=== PATIENT | male | born 1930 | race Caucasian/White ===

== ENCOUNTER 2016-12-01 21:07 | Inpatient (IN) | payer MEDICARE, BC ==
[~2016-12-01] VITALS: Ht 177.8 cm; Wt 61.7 kg
--- NOTE | ~2016-12-01 | ECH ---
Transthoracic Echocardiography Report (TTE) Demographics Patient Name CARIN MARX Date of Study 12/02/2016 Patient Number [id number] Visit Number [id number] Date of 1930 Room Number 522 Accession Number [id number] Gender Male Age 86 year(s) Referring Arvind Wu Coder Elvia Benson [facility] Physician Physician Interpreting Peyton Curry Payroll Tax Specialist Physician Supervising Ordering Physician Arvind Wu MD, MD/P Nurse Stress Meat Curer Conclusions Summary Technically fair exam. The estimated left ventricular ejection fraction is 50-55%. Mild left ventricular hypertrophy. The left atrium is mildly dilated by LA volume index measurement. Mild mitral regurgitation by color Doppler. Procedure Type of Study TTE procedure:Echo Complete SF. Procedure Date Date: 12/02/2016 Start: 08:01 AM Technical Quality: Fair due to patient immobility. Indications:Atrial fibrillation, Abnormal troponin, Coronary artery disease and pre surgical clearance. Additional Indications:pacemaker Appropriate Use Criteria: 9 Height: 70 inches Weight: 136.69 pounds BSA: 1.78 m Rhythm: Paced HR: 71 bpm BP: 141/89 mmHg Allergies - Other:(PCN, Procain). M-Mode/2D Measurements LV Diastolic Dimension: 4.36 cm LV Systolic Dimension: 3.15 cm LV Septum Diastolic: 1.1 cm LV PW Diastolic: 1.26 cm AO Root Dimension: 2.28 cm Cardiac Output: 3.05 l/min LA Dimension: 4.29 cm Cardiac Index: 1.71 l/min*m LA volume index: 38 ml/m LVOT: 2.34 cm RV Base: 3.3 cm LVOT VTI: 9.99 cm RV Mid: 2.9 cm LV Stroke volume: 42.94 ml RV Length: 5.8 cm LV Stroke volume index: 24.12 ml/m TAPSE: 1.3 cm TDI-S': 11 cm/s Doppler Measurements AV Peak Velocity: 1.8 m/s MV Peak E-Wave: 0.75 m/s AV Peak Gradient: 12.96 mmHg AV Mean Gradient: 8.18 mmHg LVOT Peak Velocity: 0.55 m/s AV Area (Continuity):1.33 cm TR Velocity:1.37 m/s Estimated PASP: 12.5 mmHg TR Gradient:7.5 mmHg Estimated RAP:5 mmHg Estimated RVSP: 13 mmHg RA Area: 12.79 cm Findings Left Ventricle The left ventricle is normal in size . Mild left ventricular hypertrophy. Diastolic function indeterminate due to patient's arrhythmia. Right Ventricle Normal right ventricle structure and function. Left Atrium The left atrium is mildly dilated by LA volume index measurement. Right Atrium Normal right atrial size. Mitral Valve Mild thickening of the mitral valve leaflets. Mild mitral regurgitation by color Doppler. Aortic Valve The aortic valve is moderately sclerotic with a mean gradient of 8mmHg. Tricuspid Valve Normal tricuspid valve structure and function. Estimated pulmonary pressures within normal range. Pulmonic Valve The pulmonic valve is not well visualized. Pericardial Effusion No evidence of pericardial effusion. Miscellaneous Visualized portions of the aortic root and ascending aorta appear normal in size. Pleural Effusion No evidence of pleural effusion. Contractility Score LV regional wall motion:(0-Non visualized 1-Normal 2-Hypokinesis 3-Akinesis 4-Dyskinesis 5-Aneurysm) Signature
[~2016-12-01 21:07] MED LIST: ARICEPT DPS5 MG PO; ASA CHILDREN'S81 MG PO; COUMADIN5 MG PO; HYDROCODONE 5MG/5 MG PO; IMDUR DPS30 MG PO; KENALOG OINT. 015 GM TP; LASIX DPS20 MG PO; MIRALAX PACKET17 GM PO; MULTIPLE VITAMIN PO; MYCOSTATIN PWD15 GM TP; TENORMIN DPS50 MG PO; TYLENOL DPS325 MG PO; ZYLOPRIM-DPS300 MG PO; [UNRECOGNIZED DRUG - OTHER] PO
--- NOTE | 2016-12-02 19:07 | ER ---
ADMIT: 12/01/2016 RM/LOC: 522 [facility] MR#: [id number] [address] [facility] [address] [place], [place] [address] [place] [address] Emergency Room Report SEX: M AGE: 86 : 1930 DATE: 12/01/2016 HISTORY OF PRESENT ILLNESS: The patient is an 86-year-old male with past medical history of AFib, CABG, coronary artery disease, CABG five vessels, peripheral vascular disease, dementia, pacemaker placement, right hip fracture status post fixation, was brought to the ER with chief complaint of left hip pain after falling. Per EMS and per nursing care facility, the patient is moving around the wheelchair and is on Coumadin, and while transferring, he fell from the wheelchair down on the left side. The EMS states that he strictly denied any head trauma and they just said the patient fell on the left hip. The patient did not lose consciousness and did not complain of any chest pain or shortness of breath over there and the ER. The patient was put on gurney and was brought to the hospital for further followups. PHYSICAL EXAMINATION: GENERAL: Family is also at bedside. The patient is awake and is not oriented to place, person, and time. Family at bedside said it is his baseline mental status, knowing he has severe dementia. The patient complains of left hip pain during movement actively and passively. VITAL SIGNS: The patient had blood pressure of 155/76, with heart rate of 89, was afebrile in the ER, lying flat on the bed, in no obvious distress. HEAD AND NECK: Pupils are 3 mm, reactive to light bilaterally. There is no obvious spinal midline tenderness or step-offs. Trachea is midline. There is no bruit on the neck. LUNGS: On the chest, there is obvious pacemaker placed on the left side, clear bilateral equal breath sounds. ABDOMEN: Soft. PELVIS: Stable. EXTREMITIES: In the lower extremities, there is no obvious swelling or deformity. The patient had moderate pain in the range of motion of the left hip at the place of left hip and left femur. ADMIT: 12/01/2016 RM/LOC: 522 [facility] MR#: [id number] [address] [address] [place] [address] Emergency Room Report SEX: M AGE: 86 : 1930 LABORATORY AND X-RAY DATA: Followup EKG showed ventricular paced rhythm as before. Cardiac enzymes were elevated to 0.081 troponin I. Sodium was 141 with potassium of 3.8, glucose of 148, hemoglobin is 13 with hematocrit of 39 and WBC of 6.1, and platelets of 183,000. UA had 12 wbc's and 18 rbc's. Chest x-ray did not show any acute changes. Left femur x-ray was not obvious for any obvious fracture. CT of the pelvis was suggestive of left impacted fracture and mildly displaced of the subcapital area of the left femur. The patient also had recent sacral fractures. DISPOSITION: Internal Medicine and Orthopedic Surgery were consulted. The patient was admitted to Internal Medicine for further followups and treatments. Orthopedic Surgery is already on board. Que Mendes MD/ trinh JOB #: [id number] CC: Luis Fernando De Guzman MD, Attending Physician Luis Fernando De Guzman MD, Family Physician
--- NOTE | 2016-12-06 07:48 | CO ---
ADMIT: 12/01/2016 RM/LOC: 522 [facility] MR#: [id number] [id number] [place], [place] [address] [place] [address] Consultation SEX: M AGE: 86 : 1930 DATE OF CONSULTATION: 12/02/2016 ATTENDING PHYSICIAN: Luis Fernando De Guzman CONSULTING PHYSICIAN: Sixto Irvin MD CHIEF COMPLAINT: Left hip pain. HISTORY: An 86-year-old male with dementia and heart disease, had a right IT fracture, fixed with a TFN in August. He fell last night it was mechanical fall, so has some pain in his left hip, was brought to the ER, and was found to have a left femoral neck fracture. He was admitted and we were consulted for definitive care. REVIEW OF SYMPTOMS: Otherwise negative. He is demented. PAST MEDICAL HISTORY: Significant for dementia, CABG, he is on blood thinners. Otherwise, noncontributory. OBJECTIVE: GENERAL: He is awake, alert, oriented, in no acute distress. VITAL SIGNS: Afebrile. Vital signs are stable. EXTREMITIES: The left lower extremity is little shortened and externally rotated. EHL, FHL. Sensation intact to light touch. Brisk capillary refill. He is pleasant in no significant distress or pain at this point. Does have pain with log roll of the left hip IMAGING DATA: x-ray and CT scan shows subcapital femoral neck fracture with posterior displacement and impaction. ASSESSMENT: An 86-year-old male with left femoral neck fracture. PLAN: Plan for him to go the OR as soon as cleared today possible with Dr. Pope or myself. Sixto Irvin MD/ trinh JOB #: [id number] CC: Luis Fernando De Guzman, Attending Physician Luis Fernando De Guzman, Family Physician
--- NOTE | 2016-12-06 08:58 | OR ---
ADMIT: 12/01/2016 RM/LOC: 522 [facility] MR#: [id number] [address] [address] [place] [address] Operative/Delivery Room Report SEX: M AGE: 86 : 1930 SURGERY DATE: 12/03/2016 SURGEON: Sixto Pope MD PREOPERATIVE DIAGNOSIS: Left femoral neck fracture. POSTOPERATIVE DIAGNOSIS: Left femoral neck fracture. PROCEDURE: Left hip bipolar. HOUSEHOLD MANAGER: MARIO Miller. ANESTHESIA: General. ESTIMATED BLOOD LOSS: 250 mL. COMPLICATIONS: None. CONDITION: Fair to recovery room. INDICATIONS: The patient is an 86-year-old male, who fell on Friday, just out of a wheelchair, injuring his left hip. He just previously a couple of months ago, had a right hip fracture, which was repaired using a TFN. The patient did come in. He was on Coumadin. INR was elevated, so we waited till his INR was normalized and the plan is take him for right hip bipolar. After discussing procedures as well as risks and benefits with the patient and family and normalization of his INR, the procedure as well as risks and benefits were discussed with the patient and family at length and questions were answered. They agreed to proceed at this point. DESCRIPTION OF PROCEDURE: After informed consent was obtained, the patient was taken to the operating room, placed on the operative table in supine position. General anesthetic was administered. After adequate general anesthesia, the patient was placed in a right lateral decubitus position with the left hip up. Left hip was then prepped and draped in the usual sterile fashion. Once this was completed, we made an incision over the proximal femur laterally through the skin and subcutaneous tissues. Hemostasis maintained using Bovie electrocautery. We then split the IT band and tensor fascia longitudinally and placed a Charnley retractor. The anterior third of the abductors were then dissected off the proximal femur, extending proximally into the gluteus medius for about 2-3 cm and into the vastus lateralis about 2- 3 cm. We dissected this one third sleeve off the proximal femur. Once we identified the fractured leg, it was brought into flexion and external rotation. The fracture was brought into the wound. We then placed the conical reamer into the piriformis fossa, reamed followed by the canal finer followed by the lateralizing reamer. We then reamed distally to about a size 8. Once this was completed, we placed the femoral neck cutting guide, made a lourdes, and made our initial femoral neck cut. We then broached to a size 8 with a good press fit with this. We then used a calcar reamer for our final ADMIT: 12/01/2016 RM/LOC: 522 [facility] MR#: [id number] [address] [address] [place] [address] Operative/Delivery Room Report SEX: M AGE: 86 : 1930 femoral neck cut. The leg was brought back up on the table. Corkscrew was then used to remove the femoral head. We measured this and measured about 50 mm. We then placed a 50 mm trial shell and this appeared to be a good fit in the acetabulum. We then cleaned everything out of the acetabulum at this point. Once this was completed, leg was brought back into flexion and external rotation. The size 8 broach was then placed impacted into position. We then trialed this with +1.5 neck length 28 mm femoral head, 50 mm outer diameter bipolar shell and reduced the hip. Took it through range of motion. Good range of motion. Good mosque of leg length. Good stability. Once this was completed, the hip was then re-dislocated. The trial components were then removed. The acetabulum and proximal femur was copiously irrigated with pulse lavage and the components were then opened on the back table to include a size 8 femoral press-fit stem. A 28 mm femoral head with +1.5 neck length and 50 mm outer diameter bipolar shell. We then once again irrigated out the femoral canal and acetabulum. We placed the permanent DePuy Lehr basic fracture stem, size 8 press-fit into the proximal femur, impacted this into position. We then placed a +1.5 neck length 28 mm femoral head with 50 mm outer diameter bipolar shell onto the component and impacted this into position. We reduced the hip. Once again, good mosque of leg length, good stability, and good range of motion. Once this was completed, the wounds were copiously irrigated. We placed a couple of number #5 Ethibond figure-of- eight sutures in the anterior capsule. We then reattached the abductors onto the proximal femur using #5 Ethibond through bony tunnels and modified Kory- Jesus stitch in the tendon edge. We then reapproximated the split in the vastus lateralis distally using #1 Vicryl in a running fashion and split in the gluteus proximally using #1 Vicryl in a running fashion. The wounds were once again copiously irrigated. IT band was reapproximated using #1 Vicryl in a ngqeby-td-offiw fashion. We irrigated the wound one final time. The subcutaneous tissue was then closed using 2-0 Vicryl in a simple interrupted fashion. The skin was closed using skin paramjit. A sterile compressive dressing was applied consisting of Xeroform, plain gauze, ABDs, Medipore tape. The patient then returned supine and transferred to recovery room in fair condition. Sixto Pope MD/ trinh JOB #: [id number] CC: Luis Fernando De Guzman, Attending Physician Luis Fernando De Guzman, Family Physician
--- NOTE | 2016-12-06 08:58 | HP ---
ADMIT: 12/01/2016 RM/LOC: 522 [facility] MR#: [id number] [address] [address] [place] [address] History and Physical SEX: M AGE: 86 : 1930 DATE OF SERVICE: 12/01/2016 HISTORY OF PRESENT ILLNESS: This is an 86-year-old male with a history of CAD, atrial fibrillation, recent right hip fracture, status post nailing, who presents to the ER today after a fall from his wheelchair, which was witnessed by his facility. He was found to have a left femur and sacral fractures. The majority of the history was obtained from his and daughter as the patient has severe dementia. The patient does state that his left leg hurts and he finds it difficult to move. The patient's and daughter state that his dementia got much worse after his right hip fracture in August and he has been much more fidgety and confused and has not been eating well since then. They report he may have lost about 20 pounds in that time frame. They state that he was actually doing pretty well the last time they were in to visit him. They are not aware of any fevers, chills, or any other issues that may have led to this fall. They report that he just slipped out of his wheelchair and landed on his left side, but did not hit his head. They are unaware of any complaints of chest pain or shortness of breath, lightheadedness, dizziness. They do not know if he has been having regular bowel movements or not. They are unaware of any changes in urinary patterns. According to the family, it sounds like he was in a relatively stable state of health until his fall, though had declined significantly after his last femur fracture. PAST MEDICAL HISTORY: 1. Coronary artery disease, status post CABG. 2. Atrial fibrillation and pacemaker implantation due to sick sinus syndrome, on chronic warfarin. 3. Peripheral vascular disease, status post carotid endarterectomy in the past. 4. Dementia. 5. Right hip fracture in August of 2016, status post nailing. 6. BPH. 7. Hypertension. MEDICATIONS: 1. Coumadin. 2. Aricept. 3. Aspirin. 4. Allopurinol. 5. MiraLax. 6. Triamcinolone cream. 7. Quetiapine. 8. Atenolol. 9. Lasix. 10.Tramadol. FAMILY HISTORY: Heart disease in father. Otherwise, noncontributory. SOCIAL HISTORY: Former smoker. Lives at a facility currently. ADMIT: 12/01/2016 RM/LOC: 522 [facility] MR#: [id number] [facility] [address] [address] [place] [address] History and Physical SEX: M AGE: 86 : 1930 ALLERGIES: NOVOCAINE, PENICILLIN. REVIEW OF SYSTEMS: The patient unable to provide complete review of systems due to severe dementia. Attempted to obtain review of systems from family, and are listed above in the HPI. PHYSICAL EXAMINATION: VITAL SIGNS: Temperature 97.7 degrees Fahrenheit, blood pressure 148/83, pulse 70, respiratory rate 17, oxygen saturation 97% on room air. GENERAL: Alert, but not oriented. Fidgeting with wires and IV and gown. HEENT: Normocephalic. Extraocular movements intact. No scleral icterus. Mucous membranes are moist. RESPIRATORY: Clear to auscultation bilaterally. No respiratory distress. CARDIOVASCULAR: Systolic murmur noted. Otherwise, appears to have regular rate and rhythm. ABDOMEN: Soft, nontender, and nondistended. Bowel sounds present. Very cachectic. EXTREMITIES: Left lower extremity externally rotated. The patient moving right lower extremity but unable to move left lower extremity due to pain. No cyanosis or edema noted. SKIN: No lesions, rashes noted. NEUROLOGICAL: Unable to fully assess as unable to move left leg due to pain and due to underlying dementia. The patient is moving right lower extremity and both upper extremities equally. Cranial nerves grossly intact. LABORATORY DATA: White blood cell count is 6.1, hemoglobin 13.0, platelets 183. Creatinine 1.1, which is similar to baseline. Otherwise, electrolytes look good. Albumin is 2.7, total protein 6.0, alkaline phosphatase 177. UA; +2 blood, +2 leukocyte esterase, 12 white blood cells without squamous cells. Troponin 0.081, but appears to have been 0.13, 0.14 in August. INR pending. Urine culture pending. IMAGING DATA: CT shows left femur fracture and left sacral fractures. ASSESSMENT AND PLAN: An 86-year-old male with history of atrial fibrillation, coronary artery disease, peripheral vascular disease, dementia, admitted with left hip and left sacral fractures. 1. Left femur and left sacral fractures. a. We will consult Ortho. b. We will get Tylenol and oxycodone for pain. c. We will have n.p.o. at midnight and checking INR. 2. Elevated troponin. a. Troponin is slightly elevated, but had been elevated back in August as well. We will hold off on starting any heparin or other treatment for ACS and we will just monitor troponin. Low suspicion of ACS at this time. 3. Atrial fibrillation, rate controlled. 4. Coronary artery disease, status post coronary artery bypass graft. ADMIT: 12/01/2016 RM/LOC: 522 [facility] MR#: [id number] [address] [address] [place] [address] History and Physical SEX: M AGE: 86 : 1930 a. Paced with rates in the 70s currently. b. We will get echo in the morning and monitor. c. INR pending, we will hold Coumadin in preparation of possible surgery. 5. Dementia. a. We will continue Aricept and quetiapine. b. Unclear if he has superimposed delirium on top of his dementia or if he is just at baseline. He is very fidgety, so may need a sitter to help keep him from pulling on tethers. 6. Fall from wheelchair. a. Unclear of exactly the events surrounding this, but sounds like he just slipped out of his wheelchair. He may have been more confused within the last 2 weeks, per patient's and daughter. 7. Possible urinary tract infection. a. Due to recent fall and possible increase in confusion, there is suspicion for possible urinary tract infection as CT does show some bladder wall thickening, but UA not very remarkable. Patient unable to note any symptoms. Cipro started Urine culture pending. 8. Severe protein-calorie malnutrition. a. We will consult Nutrition in the a.m. for possible assessment. This may be due to underlying dementia. 9. Deep vein thrombosis prophylaxis. a. We will hold chemical DVT prophylaxis in preparation for possible procedure and patient on warfarin. b. SCD's. DNR. NPO at midnight. Edith Palacios MD / Cleveland Samuels MD / trinh JOB #: [id number] CC: Luis Fernando De Guzman, Attending Physician Luis Fernando De Guzman, Family Physician
[2016-12-06] MEDS ORDERED: ARICEPT10 MG PO (19:07)
[2016-12-06] MEDS ORDERED: TENORMIN-DPS25 MG PO (19:08)
[2016-12-06] MEDS ORDERED: SEROQUEL25 MG PO (19:08)
[2016-12-06] MEDS ORDERED: MIRALAX PACKET17 GM PO (19:08)
[2016-12-06] MEDS ORDERED: LASIX DPS20 MG PO (19:08)
[2016-12-06] MEDS ORDERED: COUMADIN2.5 MG PO (19:08)
[2016-12-06] MEDS ORDERED: SENOKOT S1 TAB PO (19:08)
[2016-12-06] MEDS ORDERED: ZESTRIL DPS10 MG PO (19:09)
[2016-12-06] MEDS ORDERED: ZYLOPRIM-DPS300 MG PO (19:09)
[2016-12-06] MEDS ORDERED: NORCO 5-325 TA1 EACH PO (19:09)
[2016-12-06] MEDS ORDERED: DULCOLAX-DPS10 MG PR (19:09)
--- NOTE | 2016-12-09 08:28 | DS ---
ADMIT: 12/01/2016 RM/LOC: 522 [facility] MR#: [id number] [address] [facility] [address] [place], [place] [address] [place] [address] Discharge Summary SEX: M AGE: 86 : 1930 ADMISSION DATE: 12/01/2016 DISCHARGE DATE: 12/05/2016 CONSULTATIONS: Orthopedic Surgery. PROCEDURES: Repair of left hip fracture. FINAL DIAGNOSES: 1. Left hip fracture. 2. Sacral fractures. 3. Advanced dementia. 4. Failure to thrive. 5. Coronary artery disease. 6. Atrial fibrillation, on anticoagulation. 7. Hypertension. REASON FOR ADMISSION: The patient is an 86-year-old female, who is in a wheelchair. Fell out of it. Suffered above-mentioned fractures. Admitted for further definitive care. HOSPITAL COURSE: The patient was admitted. We had to delay surgery until his INR came down to an acceptable range being that he was on anticoagulation. Ultimately underwent surgery. Tolerated well. Pain was under reasonable control. Continued to suffer with advanced dementia and confusion. No severe agitation. He was eating and drinking back to his baseline, albeit poor. The patient felt safe and stable for discharge to long term facility for ongoing therapy services. A long discussion was had with on day of discharge at the prompting of daughter discussing with nursing that the family wants to proceed with hospice care possibly. Plan was for a referral to hospice as an outpatient, and they are going to meet with them on day of discharge. indicates understanding. Patient really over the last 6 months has not been doing well. Worsened dementia and failure to thrive. DISCHARGE MEDICATIONS: Please see discharge MAR which I fully reviewed. He will be over to skilled care facility. See me back in clinic in the next 10- 14 days. More than 35 minutes on day of discharge spent doing discharge day activities including coordination of care, discussing treatment plan with the family as well as patient. Luis Fernando De Guzman MD/ ajf JOB #: [id number] CC: Luis Fernando De Guzman MD, Attending Physician Luis Fernando De Guzman MD, Family Physician
== END 2016-12-05 15:00 | disposition short-term general hospital (02) | DRG 956 ==
LOC: ER 21:07 → 5MS 22:38
PROVIDERS: ADMIT Internal Medicine
PROC: 30233K1 Transfusion of Nonautologous Frozen Plasma into Peripheral Vein, Percutaneous Approach (ICD-10-PCS; principal; 2016-12-02)
PROC: 0SRS01A Replacement of Left Hip Joint, Femoral Surface with Metal Synthetic Substitute, Uncemented, Open Approach (ICD-10-PCS; 2016-12-03)
DX: S72.012A Unspecified intracapsular fracture of left femur, initial encounter for closed fracture (principal); S32.10XA Unspecified fracture of sacrum, initial encounter for closed fracture; E43 Unspecified severe protein-calorie malnutrition; F03.90 Unspecified dementia, unspecified severity, without behavioral disturbance, psychotic disturbance, mood disturbance, and anxiety; I48.91 Unspecified atrial fibrillation; I73.9 Peripheral vascular disease, unspecified; Z51.5 Encounter for palliative care; W05.0XXA Fall from non-moving wheelchair, initial encounter; R79.1 Abnormal coagulation profile; E87.6 Hypokalemia; I25.10 Atherosclerotic heart disease of native coronary artery without angina pectoris; N40.0 Benign prostatic hyperplasia without lower urinary tract symptoms; I25.2 Old myocardial infarction; I10 Essential (primary) hypertension; Z95.1 Presence of aortocoronary bypass graft; Z95.0 Presence of cardiac pacemaker; Z79.01 Long term (current) use of anticoagulants; Z79.82 Long term (current) use of aspirin; Z87.891 Personal history of nicotine dependence; Z66 Do not resuscitate